=== PATIENT | male | born 1960 | race Caucasian/White ===

== ENCOUNTER 2021-05-31 20:54 | Emergency (ER) | payer OTHER ==
[~2021-05-31] VITALS: Ht 170.2 cm; Wt 88.5 kg
[2021-05-31] MEDS ORDERED: COZAAR 25 MG TA25 M1 PO (21:03)
[2021-05-31] MEDS ORDERED: REVATIO20 MG PO (21:04)
[2021-05-31] MEDS ORDERED: OMEPRAZOLE 20 M20 M1 PO (21:04)
[2021-05-31] MEDS ORDERED: CARVEDILOL12.5 MG PO (21:04)
[2021-05-31 22:13] VITALS: BP 175/116
== END 2021-05-31 22:13 | disposition left against medical advice (07) ==
LOC: M.ERS 20:54
DX: M79.645 Pain in left finger(s) (principal); Z53.21 Procedure and treatment not carried out due to patient leaving prior to being seen by health care provider